=== PATIENT | female | born 1970 | race African-American/Black ===

== ENCOUNTER 2017-07-23 12:41 | Emergency (ER) | payer BC ==
--- NOTE | 2017-07-23 14:11 | RAD ---
RIGHT HAND 3 VIEWS: Date: 07/23/17 HISTORY: Hand injury. FINDINGS: There are no signs of fracture or dislocation. IMPRESSION: Negative right hand. POS: [facility]
--- NOTE | 2017-07-23 14:12 | RAD ---
RIGHT SHOULDER 3 VIEWS: Date: 07/23/17 HISTORY: Shoulder injury. FINDINGS: The AC and glenohumeral joints are unremarkable. Slight deformity to the distal end of the clavicle s uggests an old injury. No acute findings. IMPRESSION: No evidence of acute fracture. POS: [facility]
== END 2017-07-23 14:28 | disposition home or self-care (01) ==
LOC: ERS 12:41
DX: S60.011A Contusion of right thumb without damage to nail, initial encounter (principal); V49.9XXA Car occupant (driver) (passenger) injured in unspecified traffic accident, initial encounter

== ENCOUNTER 2017-12-05 15:16 | Outpatient (CLI) | payer BC | END 2017-12-05 15:17 | disposition home or self-care (01) | LOC: BICMAMMO 15:16 | PROVIDERS: ATTEND Obstetrics & Gynecology | DX: Z12.31 Encounter for screening mammogram for malignant neoplasm of breast (principal) | CPT/HCPCS: 77063; 77067 ==